=== PATIENT | female | born 1940 | race Caucasian/White ===

== ENCOUNTER 2025-01-25 12:21 | Outpatient (CLI) | payer OTHER | END 2025-01-25 12:28 | disposition home or self-care (01) | LOC: RAD 12:21 | DX: M25.511 Pain in right shoulder (principal) ==

== ENCOUNTER 2025-02-15 14:38 | Outpatient (CLI) | payer OTHER | END 2025-02-15 14:43 | disposition home or self-care (01) | LOC: RAD 14:38 | DX: Z96.641 Presence of right artificial hip joint (principal) ==

== ENCOUNTER → 2025-05-19 | Outpatient (CLI) | payer OTHER | END | disposition home or self-care (01) | LOC: RAD 12:49 | DX: M85.812 Other specified disorders of bone density and structure, left shoulder (principal); M85.811 Other specified disorders of bone density and structure, right shoulder ==

== ENCOUNTER 2025-05-23 14:50 | Outpatient (CLI) | payer OTHER | END 2025-05-23 14:56 | disposition home or self-care (01) | LOC: RAD 14:50 | DX: M25.551 Pain in right hip (principal) ==